=== PATIENT | female | born 1955 | race Two or more races ===

== ENCOUNTER 2024-01-26 05:00 | Day surgery (SDC) | payer OTHER ==
[2024-01-19 10:11] LABS: HEMATOCRIT 39.6 % (36.0-45.00); HEMOGLOBIN 13.8 g/dL (12.0-15.00); MEAN CELL VOLUME 87.1 fL (80.00-100.00); MEAN CORPUSCULAR HEMOGLOBIN 30.3 pg (27.00-32.0); MEAN CORPUSCULAR HGB CONC 34.8 g/dl (32.0-36.0); PLATELET COUNT 224 K/uL (150-450); RED BLOOD COUNT 4.55 M/uL (4.00-6.00); RED CELL DISTRIBUTION WIDTH 13.6 % (11.5-14.5)
[2024-01-19 10:39] LABS: INR 1.03; PARTIAL THROMBOPLASTIN TIME 31.6 SECONDS (22.0-34.0)
[2024-01-19 10:41] LABS: URINE APPEARANCE Clear; URINE BILIRRUBIN Negative (NEGATIVE); URINE COLOR Yellow; URINE GLUCOSE Negative (NEGATIVE); URINE LEUKOCYTE Trace; URINE NITRATE Negative; URINE PROTEIN Negative (NEGATIVE); URINE UROBILINOGEN 0.2 E.U./dl
[2024-01-19 10:42] LABS: PROTHROMBIN TIME 10.8 SECONDS (9.0-11.5)
[2024-01-19 10:45] LABS: URINE BACTERIA 12.5 uL (0.0-1933); URINE EPITHELIAL CELLS 5.2 uL (0.0-38.8); URINE RBC 11.6 uL (0.0-20.8); URINE WBC 10.4 uL (0.0-23.2)
[2024-01-19 10:49] LABS: ALBUMIN 3.6 gm/dL (3.4-5.0); BILIRUBIN TOTAL 0.69 mg/dL (0.3-1.2); CALCIUM 8.8 mg/dL (8.5-10.1); CREATININE SERUM 0.63 mg/dL (0.55-1.02); GFR 94.54; GLOBULINA 3.6 G/DL (2.4-3.5); POTASSIUM 3.86 mEq/L (3.5-5.1); TOTAL PROTEIN 7.2 gm/dL (6.4-8.2)
[2024-01-19 11:05] LABS: URINE BLOOD TRACE
[~2024-01-26 05:00] MED LIST: TENORMIN50 M1
[2024-01-26] MEDS ORDERED: CEFAZOLIN SODIUM 1,000 MG VIAL ONE (07:05)
[2024-01-26] MEDS ORDERED: ENALAPRILAT DIHYDRATE 1.25 MG/ML VIAL IV ONE ×2 (08:10→08:30)
[2024-01-26] MEDS ORDERED: hydrALAZINE HCL 20 MG VIAL ONE (08:29)
[2024-01-26] MEDS ORDERED: hydrALAZINE HCL 20 MG VIAL IV ONE (08:30)
[2024-01-26] MEDS ORDERED: CEFAZOLIN SODIUM 1,000 MG VIAL IV ONE (08:30)
[2024-01-26] MEDS ORDERED: ACETAMINOPHEN 500 MG GEL..CAP PO ONE (10:10)
== END 2024-01-26 11:15 | disposition home or self-care (01) ==
LOC: O/R 05:00 → CIR.AMB 05:00
PROVIDERS: ATTEND Orthopaedic Surgery Hand Surgery
DX: G56.01 Carpal tunnel syndrome, right upper limb (principal); Z53.09 Procedure and treatment not carried out because of other contraindication; I10 Essential (primary) hypertension